=== PATIENT | female | born 1940 | race Caucasian/White ===

== ENCOUNTER → 2020-08-22 10:46 | Outpatient (CLI) | payer MEDICARE, OTHER, SELFPAY ==
[2020-08-22 12:52] LABS: COVID19 -Nasal RAPID Negative (Negative)
== END ==
PROVIDERS: Visit Provider Physician Assistant
DX: Z01.812 Encounter for preprocedural laboratory examination (principal)
CPT/HCPCS: 87635

== ENCOUNTER 2020-08-25 09:58 | Day surgery (SDC) | payer MEDICARE, OTHER, SELFPAY ==
[2020-08-22 07:22] VITALS: BMI 25.7
[2020-08-25] VITALS (20 sets, daily range): BP systolic 111–162; BP diastolic 31–102; PULSE 74–108; RESP 10–20; TEMP 35.8–36.7; O2SAT 93–100; BMI 25.7
--- NOTE | 2020-08-25 | DI.RAD.S_ITS ---
PROCEDURE: XR LUMBAR SPINE 2-3V INDICATIONS: L4-5 TLIF TECHNIQUE: 2 fluoroscopic views of the lumbar spine were acquired. COMPARISON: CT, ABD/PELVIS W/CON (PNL), 08/28/2014, 0:03. [facility], , L-SPINE 2-3 VIEWS, 06/01/2015, 17:25. FINDINGS: Pedicle screws at L4-L5 with intervertebral body spacer are in the expected position. IMPRESSION: Satisfactory appearance of the L4-L5 TLIF. Dictated by: Gallo Dolan M.D. on 08/28/2020 at 11:12 Approved by: Gallo Dolan M.D. on 08/28/2020 at 11:14
--- NOTE | 2020-08-25 10:07 | PM.PREOP ---
Pre-operative Note COVID-19 COVID-19 status: Negative Result date/Date tested (Pos, Neg/Pending): 08/23/20 Interval Note History & Physical reviewed/Exam performed by Physician: Yes Changes to H&P: No
[2020-08-25] MEDS: LACTATED RINGERS 1,000 ML 42 ML IV (10:44)
[2020-08-25] MEDS: CEFAZOLIN 2 GM/100 ML FROZ.PIGGY IV (11:08)
--- NOTE | 2020-08-25 11:51 | SUR.OPER ---
Prone on spine table, head in foam head support, padded chest and pelvic supports, gel pad at knees, lower legs supported by pillows; nipples, genitalia and toes free of pressure, arms secured on foam padded arm boards at <90 degrees abduction. Tape over blanket at thigh secured to table.
[2020-08-25] MEDS: BUPIVACAINE 0.25% W/ EPI (PF) 10 ML VIAL 20 ML INJ (12:01)
[2020-08-25] MEDS: BUPIVACAINE LIPOSOME 266 MG/20 ML VIAL INJ (12:03)
[2020-08-25] MEDS: ACETAMINOPHEN IV 1,000 MG/100 ML VIAL 400 MG IV (12:23)
--- NOTE | 2020-08-25 13:28 | P.OP_ITS ---
Operative Date/Time/Diagnoses Date of procedure: 08/25/20 Time of procedure: 11:39 Pre-op diagnosis: 1. L4-5 recurrent disc herniation 2. L4-5 spinal stenosis 3. L4-5 spondylosis with radiculopathy Post-op diagnosis: same Procedure & Clinicians Procedure: 1. L4-5 Postero-lateral and posterior interbody fusion 2. L4-5 interbody cage placement. 3. L4-5 decompressive laminectomy with bilateral facetecomies 4. L4-5 Posterior non-segmental instrumentation 5. [place] of bone marrow from iliac crest 6. Utilization of microsurgical technique and operating microscope Same procedure as scheduled: Yes Indications: Patient has been having chronic back pain and worsening lumbar radiculopathy. Patient had a previous microdiskectomy hemilaminectomy with temporary relief of her radiculopathy. Patient failed multiple conservative management with worsening pain weakness and numbness in her lower extremity. Patient has been having difficulty performing activity of daily living. After discussing risks benefits of treatment options, patient elected proceed with surgery. Surgeon: Lawrence Mclain Administration Manager: Soumya Mcbride Click Yes if Unassisted: No Anesthesia Type: General Operative Notes Closure Type: primary Specimen(s): none sent Prosthetic devices, grafts, tissues, transplants, or devices: Globus revolve screws, Rise cage Estimated Blood Loss (mL): 50 Blood products transfused: none Procedure in detail: Patient was seen in the preoperative area. Risks and benefits of the surgery was discussed with the patient. Informed consent was obtained from the patient and placed in the chart. Surgical site was marked. Patient was taken to the operative room. General anesthesia was administered. Prophylactic antibiotic was given to the patient less than 30 min before the incision was made. Patient was placed into a prone position on the Gustavo table. Patient's back was then prepped and draped in the sterile fashion. Time- out was performed at this time. Using AP and lateral C-arm imaging the interval between L4-5 was identified and marked on patient's back. A 2 inch incision 2 in from midline was made on the left side first. The fascia was incised in line with skin incision. Globus MARS retractors was placed inside the incision and docked onto the L4 lamina. Using microsurgical technique and operating microscope, a L4 laminectomy and L4-5 facetectomy was performed using a Kerrison rongeur. Patient was found have severe central and neural foramen stenosis which required a total facetectomy for decompression of the neural foramen and epidural space. The decompression rendered L4-5 level grossly unstable requiring a fusion procedure at same time. The disc space at L4-5 was identified. And a total diskectomy was performed at L4-5 level. The endplates were decorticated using a rasp and shaver. The total diskectomy and decortication was performed at L4-5 level in order to to accomplish a L4-5 fusion. The local bone from the laminectomy and facetectomy was saved for local bone grafting. After the total diskectomy and decortication was completed, Trifecta bone graft material was combined with local bone that was harvested earlier. At this time, a separate skin is incision was made over the iliac crest. A Jamshidi needle was inserted into the iliac crest through a separate skin incision. 5 cc of bone marrow aspiration was obtained through the separate skin incision using a Jamshidi needle from the iliac crest. The bone marrow aspiration was combined with local bone and the Trifecta bone grafting material. The bone grafting material was placed into the L4-5 interbody space along with a expandable cage. The cage was expanded to its maximum height using the torque limiting screwdriver. At this time a mirror image incision was made on the right side. The fascia was incised in line with the skin incision. Globus MARS retractor was inserted and docked onto the L4-5 posterolateral gutter. Using the power drill, posterior- lateral decortication was performed at L4-5 level until bleeding cortical bone was identified. The remaining bone grafting material was placed into the L4-5 posterior lateral gutter he order to accomplish posterolateral fusion at the L4- 5 level. Using the double C-arm technique, pedicle screws were placed into the L4-5 pedicles bilaterally. This was done by placing the Jamshidi needle into the pedicles, then placing the guidewires over the Jamshidi needle, and finally placing the cannulated screws over the guidewires bilaterally. After the pedicle screws were placed, 2 titanium rods was locked into the heads of the pedicle screws using locking caps and torque limiting screwdriver. After all the hardware was placed, and confirmed with AP and lateral C-arm imaging, the wound was then irrigated with sterile normal saline and packed with Ray-Dustin gauze for 3 min to accomplish hemostasis. After the gauze was removed the deep fascia was closed with #1 Vicryl suture. The subcutaneous layer was closed with 2-0 Vicryl. The skin was closed with skin pan. Patient tolerated the procedure well. There were no complications. Complications: none Post-operative Condition: stable Disposition: PACU Plan for aftercare: Admit to inpatient hospital
[2020-08-25] MEDS: fentaNYL 100 MCG/2 ML INJ IV ×2 (13:45→13:59)
[2020-08-25] MEDS: HYDROMORPHONE 2 MG INJ IV ×2 (13:50→14:09)
[2020-08-25] MEDS: LORazepam 2 MG/ML INJ 0.25 MG IV (14:04)
[2020-08-25] MEDS: ONDANSETRON 4 MG/2 ML INJ IV (14:39)
[2020-08-25] MEDS: OXYCODONE IR 5 MG TABLET PO (14:39)
--- NOTE | 2020-08-25 14:53 | SUR.PHASEI ---
Pt arrived to PACU awake and moaning with pain. Dr Santos gave pt 1mg of Dilaudid IV, pt continued to be restless and moaning. Pt positioned in several different positions till she became comfortable. Pt medicated with fntanyl, dilaudid and oxycodone. Pt also medicated with zofran as she stated pain pills make her nauseated.
--- NOTE | 2020-08-25 15:45 | SUR.PHASEI ---
1445 RN unavailable for report, pt placed in PACU holding till 1515. Pt transported up to room 207, face to face report given, pt much more comfortable in Vera bed. [id number] to back remained c/d/i. Pt left with MITCH Balderrama in stable condition.
[2020-08-25] MEDS: SODIUM CHLORIDE 0.9% 1,000 ML 100 ML IV (16:35)
[2020-08-25] MEDS: hydrOXYzine pamoate 25 MG CAPSULE PO (17:12)
[2020-08-25] MEDS: PANTOPRAZOLE 20 MG TABLET PO (20:05)
[2020-08-25] MEDS: CEFAZOLIN 1 GM/50 ML FROZ.PIGGY IV (20:05)
[2020-08-25] MEDS: DOCUSATE 100 MG CAPSULE PO (20:07)
[2020-08-25] MEDS: SENNOSIDES 8.6 MG TABLET 17.2 MG PO (20:07)
[2020-08-25] MEDS: ACETAMINOPHEN 325 MG TABLET 650 MG PO (20:17)
[2020-08-25] MEDS: HYDROMORPHONE 0.5 MG INJ IV (23:50)
[2020-08-26] MEDS: CEFAZOLIN 1 GM/50 ML FROZ.PIGGY IV (02:41)
[2020-08-26] MEDS: SODIUM CHLORIDE 0.9% 1,000 ML 100 ML IV (02:52)
[2020-08-26] MEDS: HYDROMORPHONE 0.5 MG INJ IV ×3 (03:21→09:01)
[2020-08-26 03:33] VITALS: BP 135/90; PULSE 67; RESP 18; TEMP 36.6; O2SAT 100
[2020-08-26 07:00] VITALS: BP 116/55; PULSE 76; RESP 17; TEMP 36.2; O2SAT 100
[2020-08-26] MEDS: THYROID, PORK 30 MG TABLET 90 MG PO (09:04)
[2020-08-26] MEDS: DOCUSATE 100 MG CAPSULE PO (09:04)
[2020-08-26] MEDS: estradioL 0.5 MG TABLET PO (09:04)
[2020-08-26] MEDS: POTASSIUM CHLORIDE 20 MEQ TAB 10 MEQ PO (09:05)
[2020-08-26] MEDS: hydrOXYzine pamoate 25 MG CAPSULE PO (09:05)
[2020-08-26] MEDS: ACETAMINOPHEN 325 MG TABLET 650 MG PO (09:05)
[2020-08-26] MEDS: MAGNESIUM OXIDE 400 MG TABLET PO (09:13)
[2020-08-26] MEDS: ROSUVASTATIN 10 MG TABLET 2.5 MG PO (09:15)
--- NOTE | 2020-08-26 09:45 | PT.IIE ---
Current Diagnoses Spinal stenosis, lumbar region without neurogenic claudication (08/25/20) Other specified postprocedural states (08/25/20) Surgery Performed Operation Date: 08/25/20 11:45 Actual Procedures p L4-5 TLIF - Lawrence Mclain MD Surgical History (Last Updated 08/22/20 @ 08:49 by Cait Noyola, RN) History of colonoscopy (Acute) History of esophagogastroduodenoscopy (EGD) (Acute) History of fusion of cervical spine (Acute) History of left-sided carotid endarterectomy (Acute 2006) History of Monty fundoplication (Acute) History of partial hysterectomy (Acute) History of repair of hiatal hernia (Acute ~2015) Hx of arthroscopy of right knee (Acute) Hx of bilateral cataract extraction (Acute) Hx of bladder repair surgery (Acute 1978) Hx of cholecystectomy (Acute) Hx of foot surgery (Acute) Hx of laminectomy (Acute 06/01/15) Hx of LASIK (Acute) Hx of sinus surgery (Acute) Hx of tonsillectomy (Acute) Medical History (Last Updated 08/22/20 @ 08:49 by Cait Noyola, MITCH) Anxiety (Acute) Aortic stenosis (Acute) Asthma (Acute) Ramirez's esophagus (Acute) Chronic bronchitis (Acute) CVA (cerebral vascular accident) (Acute ~2003) Depression (Acute) Diverticulosis (Acute) Edema (Acute) Erythema nodosum (Acute) Feeding by G-tube (Acute) GERD (gastroesophageal reflux disease) (Acute) History of nephritis (Acute) History of shingles (Acute) HLD (hyperlipidemia) (Acute) HTN (hypertension) (Acute) Hx of scarlet fever (Acute) Hypothyroidism (Acute) Left carotid stenosis (Acute) JONI on CPAP (Acute 08/2017) Palpitations (Acute) Pre-diabetes (Acute) PSVT (paroxysmal supraventricular tachycardia) (Acute) Raynauds phenomenon (Acute) Right renal artery stenosis (Acute) Spinal stenosis (Acute) Physical Therapy Inpatient Evaluation/Re-Eval M1 PT/OT-IP Prior Functional Status Start: 08/26/20 13:07 Freq: NEEDED Status: Active Protocol: Document 08/26/20 09:45 AB (Rec: 08/26/20 13:31 AB [id number]) Medical Review Prior Functional Status Medical History Reviewed Yes Communication able to make needs known Mobility and Gait pt stated that she is independent with all mobilities and ambulation wihtout AD Activities of Daily Living and IADL's stated that spouse assist her with LB dressing Social History Household Members spouse Living Arrangements House Number of Floors (Floors) One Floor Number of Stairs To Enter/Railing? ramp to enter Home Environment High Toilet,Walk in Shower Home Equipment Front Wheel Walker,Four Wheel Walker,Shower Seat with Backrest,Hand Held Shower,Grab Bars Near Toilet,Grab Bars In Shower Additional Social History Comment pt has an adjustable bed has a hurrycane at home M2 PT-IP Current Condition Start: 08/26/20 13:07 Freq: NEEDED Status: Active Protocol: Document 08/26/20 09:45 AB (Rec: 08/26/20 13:31 AB [id number]) Physical Therapy Current Condition Current Condition Evaluation Date 08/26/20 Treatment Diagnosis s/p L4-5 fusion/lami; difficulty in walking Onset Date 08/25/20 Precautions Lumbar Precautions Log Roll,No Twisting,Limit Bending,Lifting Restriction of 10 lbs,Gait Belt above Incisional Area M3 PT-IP Subjective Start: 08/26/20 13:07 Freq: NEEDED Status: Active Protocol: Document 08/26/20 09:45 AB (Rec: 08/26/20 13:31 AB [id number]) Subjective Physical Therapy Visit Type Type Initial Evaluation Visit Start Time 09:45 Visit Stop Time 10:41 Total Visit Minutes 56 Number of INFORMATION SYSTEMS CONSULTANT Visits 0 Physical Therapy Visit Comments Patient Comments pt is agreeable to do PT; pt can get very anxious Therapy Pain Assessment Pain When Pain Assessed At Rest Pain Present Pain Present Pain Reported Location Lower Back Intensity 4 Scale Used Numeric (0 - 10) Pain Management Techniques Distraction,Modification of Treatment,Timing of Activity with Medications M4 PT-IP Mobility and Gait Start: 08/26/20 13:07 Freq: NEEDED Status: Active Protocol: Document 08/26/20 09:45 AB (Rec: 08/26/20 13:31 AB [id number]) PT-Bed Mobility Assessment Rolling Type of Rolling Log Rolling Level of Assist Standby Assistance Supine to Sit Supine to Sit Standby Assistance Sit to Supine Sit to Supine Standby Assistance PT-Transfer Assessment Sit to and From Stand Sit to and from Stand Standby Assistance,Contact Guard Assistance,Use of Upper Extremities Equipment Transfer Assistive Device Gait Belt,Front Wheeled Walker Orthotic/Prosthetic Devices or Brace: No Transfers Transfer Destination Bed,Chair,Toilet Transfer Technique ambulated using FWW Transfer Ability Level of Assist Standby Assistance,Contact Guard Assistance,1 Person Assistance,Use of Upper Extremities Comments Mobility Comments pt is very anxious and has lots of questions regarding back precautions and log roll. educated pt and feels more comfortable and has better understanding regarding back precautions concerns. completed supine<>sit log roll SBA and cues. completed again but with her daughter assisting and cueing her and daughter was able to cue appropriately. completed sit to stand SBA to CGA and ambulated in room ~ 50 ft using FWW SBA to CGA. requested to use the toilet and ambulated using FWW SBA. completed toileting needs SBA. ambulated towards the sink SBA using FWW and was able to maintain standing balance SBA. ambulated to the chair and positioned on chair but pt stated that chair is not comfortable and having more back pain and wants to go back to bed. ambulated to the bed using FWW. completed sit to supine SBA. positioned in bed . OT came in and took over. Gait Assessment Gait Gait Assistance Required: Standby Assistance,Contact Guard Assist Distance (Feet) 50 Able to Maintain Weight Bearing Status Yes During Gait Assistive Devices Assistive Device Gait Belt,Front Wheeled Walker Orthotic/Prosthetic Devices or Brace: No Gait Deviations General Gait Pattern Antalgic,Decreased Stride Length,Decreased Feet Clearance Factors Limiting Gait Function Factors Limiting Gait Function Decreased Activity Tolerance, Decreased Strength,Limited Range of Motion,Pain,Poor Balance,Poor Safety Awareness Comments Gait Comments pls refer to mobility section for details PT-Balance Assessment Sitting Balance and Reactions Static Sitting Balance Ability Good Dynamic Sitting Balance Ability Good Standing Balance and Reactions Static Standing Balance Ability Fair Dynamic Standing Balance Ability Fair Device Used FWW M5 PT-IP Objective Assessments Start: 08/26/20 13:07 Freq: NEEDED Status: Active Protocol: Document 08/26/20 09:45 AB (Rec: 08/26/20 13:31 AB [id number]) Orientation Orientation/Cognition Level of Alertness Alert Orientation Name,Age,Place,Situation Language Function Ability Hard of Hearing Safety Awareness Decreased Safety Awareness Gross Range of Motion Lower Extremity ROM Assessment Within Functional Limits Strength Lower Extremity Strength Assessment Within Functional Limits Coordination Assessment Gross Coordination Gross Coordination WNL Sensation Assessment Sensation Gross Sensation WNL Muscle Tone Muscle Tone WNL Yes M6 PT-IP Treatment Start: 08/26/20 13:07 Freq: NEEDED Status: Active Protocol: Document 08/26/20 09:45 AB (Rec: 08/26/20 13:31 AB [id number]) Physical Therapy Treatment Education Education Provided Precautions,Weight Bearing Status,Post-Op Packet,Safety M7 PT-IP Assessment and Plan Start: 08/26/20 13:07 Freq: NEEDED Status: Active Protocol: Document 08/26/20 09:45 AB (Rec: 08/26/20 13:31 [id number]) PT Summary Assessment and Plan Potential Rehabilitation Potential Good Status of Condition at Evaluation Stable Summary Impairments Pain,ROM,Strength,Balance, Coordination,Sensation, Cognition,Bed Mobility, Transfers,Gait,Activity Tolerance Assessment Summary pt requiring SBA to CGA with mobility. initiated caregiver training with daughter and was able to assist and cue pt appropriately. pt plans to go home with assist. pt may go home when medically stable. Goals Bed Mobility Goal Independent Transfer Goal Independent,Front Wheeled Walker Gait Goal Independent,Front Wheel Walker Gait Distance 250 Days to Meet Goals 3 Frequency of Treatment Frequency Of Treatment Twice a Day Treatment Plan Physical Therapy Treatment Plan Bed Mobility Training,Transfer Training,Gait Training, Therapeutic Exercise,Balance Retraining,Post Op Education, Discharge Planning,Hot or Cold Pack,Neuromuscular Re-ed, Coordination Retraining,Manual Therapy Other Recommendations and Next Treatment ambulation, caregiver training Focus Recommendations To Nursing Amount of Assist Needed 1 Person Assist Discharge Recommendations PT Discharge Recommendations Home with Assistance Transportation Needs at Discharge Private Vehicle
--- NOTE | 2020-08-26 10:04 | PM.DS.1 ---
History of Present Illness History of Present Illness Date Patient Seen: 08/26/20 Time Patient Seen: 10:04 Chief complaint: OPB Narrative: Patient's pain is moderate to severe. Denies fever chills. No nausea vomiting. Patient does have family home to assist her. Patient wishes to go home today if stable to do so. Discharge Providers Provider Discharge Date: 08/26/20 Primary care physician: Chilango Zepeda MD Consults: 08/25/20 10:40 Consult to Respiratory Therapy Evaluate & Treat Comment: Physician Instructions: Evaluate and treat 08/25/20 15:47 Consult to Occupational Therapy Evaluate & Treat Comment: Physician Instructions: Evaluate and treat Consult to Physical Therapy Evaluate & Treat Comment: Physician Instructions: Evaluate and Treat Discharge provider: Francisco Javier Lynn PA-C Summary Hospital Course Discharge Diagnosis: 1. L4-5 recurrent disc herniation 2. L4-5 spinal stenosis 3. L4-5 spondylosis with radiculopathy Hospital Course: Procedure: 1. L4-5 Postero-lateral and posterior interbody fusion 2. L4-5 interbody cage placement. 3. L4-5 decompressive laminectomy with bilateral facetecomies 4. L4-5 Posterior non-segmental instrumentation 5. [place] of bone marrow from iliac crest 6. Utilization of microsurgical technique and operating microscope Same procedure as scheduled: Yes Indications: Patient has been having chronic back pain and worsening lumbar radiculopathy. Patient had a previous microdiskectomy hemilaminectomy with temporary relief of her radiculopathy. Patient failed multiple conservative management with worsening pain weakness and numbness in her lower extremity. Patient has been having difficulty performing activity of daily living. After discussing risks benefits of treatment options, patient elected proceed with surgery. Surgeon: Lawrence Mclain Lidder: Soumya Mcbride Click Yes if Unassisted: No Anesthesia Type: General Operative Notes Closure Type: primary Specimen(s): none sent Prosthetic devices, grafts, tissues, transplants, or devices: Globus revolve screws, Rise cage Estimated Blood Loss (mL): 50 Blood products transfused: none Patient admitted to the hospital yesterday for the above-mentioned procedure. Patient consented to the same. Patient taken to the operating room underwent L4-L5 posterior lateral and posterior interbody fusion. Patient back in her room recovering well and assist stable condition. Patient does have assistance at home. Patient wishes to go home today if stable to do so. Patient will be discharged after working with physical therapy. Exam Vital Signs (past 8 hours): - 08/26/20 03:33 08/26/20 07:00 Temperature 97.9 F 97.2 F L Pulse Rate 67 76 Respiratory Rate 18 17 Blood Pressure 135/90 116/55 L Pulse Oximetry 100 100 Oxygen Delivery Method CPAP Oxygen Flow Rate 0 Narrative Exam Narrative: Pleasant 80-year-old female resting comfortably in bed in no apparent distress. Lumbar dressing is clean, dry and intact. Sensation grossly intact to light touch bilateral lower extremities. Motor functions intact bilateral lower extremities. Both lower extremities are warm and dry. Discharge Assessment & Plan Assessment and Plan Assessment: Postop day 1 status post L4-L5 posterior lateral and posterior interbody fusion. Patient progressing as expected and will be discharged after physical therapy if stable to do so. Discharge Plan Discharge Plan Patient Disposition: Home Provider Discharge Comment: DC today after PT Discharge orders & Medications Discharge Orders: Discharge (Order); Ordered 08/26/20 Ordered By: Francisco Javier Lynn Prescriptions: New hydromorphone [Dilaudid] 4 mg tablet 4 mg PO Q4H PRN (Reason: pain) Qty: 60 RF: 0 docusate sodium [DOK] 100 mg Capsule 100 mg PO BID Qty: 30 RF: 0 acetaminophen 325 mg Tablet 650 mg PO Q6HR PRN (Reason: Pain, Mild (1-3)) Qty: 60 RF: 0 ondansetron HCl [Zofran] 4 mg tablet 4 mg PO Q8H PRN (Reason: nausea and vomiting) Qty: 20 RF: 0 Continued (DME) Respironics Dreamstation CPAP Qty: 1 RF: 0 albuterol sulfate 2.5 mg /3 mL (0.083 %) Solution For Nebulization 2.5 mg INHALATION Q4H PRN (Reason: Wheezing) RF: 0 clopidogrel 75 mg Tablet 75 mg PO DAILY RF: 0 aspirin 81 mg Tablet,Delayed Release (Dr/Ec) 81 mg PO DAILY RF: 0 triamcinolone acetonide 0.1 % Cream 1 applic TOPICAL PRN PRN (Reason: skin) RF: 0 hydroxyzine HCl 25 mg Tablet 25 mg PO QID PRN (Reason: Itching) RF: 0 estradiol 0.5 mg Tablet 0.5 mg PO DAILY RF: 0 azelastine 137 mcg (0.1 %) Aerosol,[place] 2 spray INTRANASAL BID PRN (Reason: prn) RF: 0 fluticasone propion-salmeterol [Advair Diskus] 100-50 mcg/dose Blister With Device 1 inh INHALATION DAILY RF: 0 estradiol 0.01 % (0.1 mg/gram) Cream 1 g VAGINAL 3XW RF: 0 albuterol sulfate 90 mcg/actuation Hfa Aerosol Inhaler 2 puff INHALATION Q4H PRN (Reason: Wheezing) RF: 0 lisinopril 2.5 mg Tablet 2.5 mg PO DAILY RF: 0 esomeprazole magnesium 20 mg Capsule,Delayed Release(Dr/Ec) 20 mg PO DAILY RF: 0 rosuvastatin 5 mg Tablet 2.5 mg PO DAILY RF: 0 cholecalciferol (vitamin D3) 25 mcg (1,000 unit) Tablet 25 mcg PO DAILY RF: 0 hydrochlorothiazide 12.5 mg Tablet 12.5 mg PO DAILY RF: 0 thyroid (pork) 90 mg Tablet 90 mg PO DAILY RF: 0 lutein 40 mg Capsule See Rx Instructions .ROUTE .COMPLEX RF: 0 potassium chloride 20 mEq Tablet Extended Release 10 - 20 meq PO DAILY RF: 0 evolocumab 140 mg/mL Syringe 140 mg SUBCUT Q2W RF: 0 Spiriva Respimat 1.25 mcg/actuation Mist 2 puff INHALATION DAILY RF: 0 cyclosporine 0.05 % Drops 1 drp EYE-BOTH BID RF: 0 magnesium oxide 400 mg magnesium Tablet 400 mg PO DAILY RF: 0 Follow up/Referrals: Lawrence Mclain MD [Physician] - (2 weeks) Diet/Activity/Treatments Diet: Diet as Tolerated Activity: Limit bending, lifting, twisting Cold/Heat Therapy: ice as needed Skin/Wound/Dressing Care Report to your healthcare provider any signs of infection, such as:: chills, fever, increased pain, unusual drainage and unusual redness Dressing: keep clean and dry Visit Report/Discharge Packet Instructions: DI for Transforaminal Lumbar Interbody Fusion Stand Alone Forms: Surgery Discharge Discharge Data Primary Care Provider: Chilango Zepeda Attending Provider: Lawrence Mclain Quality VTE Deep Vein Thrombosis/Pulmonary Embolism Present on Admission: No
--- NOTE | 2020-08-26 10:08 | P.DS_ITS ---
History of Present Illness History of Present Illness Chief complaint: OPB Narrative: Patient's pain is moderate to severe. Denies fever chills. No nausea vomiting. Patient does have family home to assist her. Patient wishes to go home today if stable to do so. Discharge Providers Provider Discharge Date: 08/26/20 Primary care physician: Chilango Zepeda MD Consults: 08/25/20 10:40 Consult to Respiratory Therapy Evaluate & Treat Comment: Physician Instructions: Evaluate and treat 08/25/20 15:47 Consult to Occupational Therapy Evaluate & Treat Comment: Physician Instructions: Evaluate and treat Consult to Physical Therapy Evaluate & Treat Comment: Physician Instructions: Evaluate and Treat Discharge provider: Francisco Javier Lynn PA-C Exam Vital Signs (past 8 hours): - 08/26/20 03:33 08/26/20 07:00 Temperature 97.9 F 97.2 F L Pulse Rate 67 76 Respiratory Rate 18 17 Blood Pressure 135/90 116/55 L Pulse Oximetry 100 100 Oxygen Delivery Method CPAP Oxygen Flow Rate 0 Discharge Assessment & Plan Assessment and Plan Assessment: Postop day 1 status post L4-L5 posterior lateral and posterior interbody fusion. Patient progressing as expected and will be discharged after physical therapy if stable to do so. Discharge Plan Discharge Plan Patient Disposition: Home Provider Discharge Comment: DC today after PT Discharge orders & Medications Discharge Orders: Discharge (Order); Ordered 08/26/20 Ordered By: Francisco Javier Lynn Prescriptions: New acetaminophen 325 mg Tablet 650 mg PO Q6HR PRN (Reason: Pain, Mild (1-3)) Qty: 60 RF: 0 docusate sodium [DOK] 100 mg Capsule 100 mg PO BID Qty: 30 RF: 0 ondansetron HCl [Zofran] 4 mg tablet 4 mg PO Q8H PRN (Reason: nausea and vomiting) Qty: 20 RF: 0 hydromorphone [Dilaudid] 4 mg tablet 4 mg PO Q4H PRN (Reason: pain) Qty: 60 RF: 0 Continued (DME) Respironics Dreamstation CPAP Qty: 1 RF: 0 albuterol sulfate 2.5 mg /3 mL (0.083 %) Solution For Nebulization 2.5 mg INHALATION Q4H PRN (Reason: Wheezing) RF: 0 clopidogrel 75 mg Tablet 75 mg PO DAILY RF: 0 aspirin 81 mg Tablet,Delayed Release (Dr/Ec) 81 mg PO DAILY RF: 0 triamcinolone acetonide 0.1 % Cream 1 applic TOPICAL PRN PRN (Reason: skin) RF: 0 hydroxyzine HCl 25 mg Tablet 25 mg PO QID PRN (Reason: Itching) RF: 0 estradiol 0.5 mg Tablet 0.5 mg PO DAILY RF: 0 azelastine 137 mcg (0.1 %) Aerosol,[place] 2 spray INTRANASAL BID PRN (Reason: prn) RF: 0 fluticasone propion-salmeterol [Advair Diskus] 100-50 mcg/dose Blister With Device 1 inh INHALATION DAILY RF: 0 estradiol 0.01 % (0.1 mg/gram) Cream 1 g VAGINAL 3XW RF: 0 albuterol sulfate 90 mcg/actuation Hfa Aerosol Inhaler 2 puff INHALATION Q4H PRN (Reason: Wheezing) RF: 0 lisinopril 2.5 mg Tablet 2.5 mg PO DAILY RF: 0 esomeprazole magnesium 20 mg Capsule,Delayed Release(Dr/Ec) 20 mg PO DAILY RF: 0 rosuvastatin 5 mg Tablet 2.5 mg PO DAILY RF: 0 cholecalciferol (vitamin D3) 25 mcg (1,000 unit) Tablet 25 mcg PO DAILY RF: 0 hydrochlorothiazide 12.5 mg Tablet 12.5 mg PO DAILY RF: 0 thyroid (pork) 90 mg Tablet 90 mg PO DAILY RF: 0 lutein 40 mg Capsule See Rx Instructions .ROUTE .COMPLEX RF: 0 potassium chloride 20 mEq Tablet Extended Release 10 - 20 meq PO DAILY RF: 0 evolocumab 140 mg/mL Syringe 140 mg SUBCUT Q2W RF: 0 Spiriva Respimat 1.25 mcg/actuation Mist 2 puff INHALATION DAILY RF: 0 cyclosporine 0.05 % Drops 1 drp EYE-BOTH BID RF: 0 magnesium oxide 400 mg magnesium Tablet 400 mg PO DAILY RF: 0 Follow up/Referrals: Lawrence Mclain MD [Physician] - (2 weeks) Diet/Activity/Treatments Diet: Diet as Tolerated Activity: Limit bending, lifting, twisting Cold/Heat Therapy: ice as needed Skin/Wound/Dressing Care Report to your healthcare provider any signs of infection, such as:: chills, fever, increased pain, unusual drainage and unusual redness Dressing: keep clean and dry Visit Report/Discharge Packet Instructions: DI for Transforaminal Lumbar Interbody Fusion Stand Alone Forms: Surgery Discharge Discharge Data Primary Care Provider: Chilango Zepeda Attending Provider: Lawrence Mclain VTE Deep Vein Thrombosis/Pulmonary Embolism Present on Admission: No
[2020-08-26] MEDS: HYDROMORPHONE 4 MG TABLET PO ×2 (10:20→14:37)
[2020-08-26] MEDS: CHOLECALCIFEROL (VITAMIN D3) 1,000 UNIT TABLET 1000 UNIT PO (10:21)
[2020-08-26] MEDS: ONDANSETRON 4 MG/2 ML INJ IV (10:55)
--- NOTE | 2020-08-26 11:17 | OT.IP.EVAL ---
Current Diagnoses Spinal stenosis, lumbar region without neurogenic claudication (08/25/20) Other specified postprocedural states (08/25/20) Surgery Performed Operation Date: 08/25/20 11:45 Actual Procedures p L4-5 TLIF - Lawrence Mclain MD Past Medical History (Last Updated 08/22/20 @ 08:49 by Cait Noyola, RN) Anxiety (Acute) Aortic stenosis (Acute) Asthma (Acute) Ramirez's esophagus (Acute) Chronic bronchitis (Acute) CVA (cerebral vascular accident) (Acute ~2003) Depression (Acute) Diverticulosis (Acute) Edema (Acute) Erythema nodosum (Acute) Feeding by G-tube (Acute) GERD (gastroesophageal reflux disease) (Acute) History of nephritis (Acute) History of shingles (Acute) HLD (hyperlipidemia) (Acute) HTN (hypertension) (Acute) Hx of scarlet fever (Acute) Hypothyroidism (Acute) Left carotid stenosis (Acute) JONI on CPAP (Acute 08/2017) Palpitations (Acute) Pre-diabetes (Acute) PSVT (paroxysmal supraventricular tachycardia) (Acute) Raynauds phenomenon (Acute) Right renal artery stenosis (Acute) Spinal stenosis (Acute) Surgical History (Last Updated 08/22/20 @ 08:49 by Cait Noyoal, RN) History of colonoscopy (Acute) History of esophagogastroduodenoscopy (EGD) (Acute) History of fusion of cervical spine (Acute) History of left-sided carotid endarterectomy (Acute 2006) History of Monty fundoplication (Acute) History of partial hysterectomy (Acute) History of repair of hiatal hernia (Acute ~2015) Hx of arthroscopy of right knee (Acute) Hx of bilateral cataract extraction (Acute) Hx of bladder repair surgery (Acute 1978) Hx of cholecystectomy (Acute) Hx of foot surgery (Acute) Hx of laminectomy (Acute 06/01/15) Hx of LASIK (Acute) Hx of sinus surgery (Acute) Hx of tonsillectomy (Acute) Occupational Therapy Inpatient Evaluation/Re-Eval M1 PT/OT-IP Prior Functional Status Start: 08/26/20 13:07 Freq: NEEDED Status: Active Protocol: Document 08/26/20 13:27 CGR (Rec: 08/26/20 13:41 CGR [email or web address]) Medical Review Prior Functional Status Medical History Reviewed Yes Communication Pt is an effective verbal communicator. Mobility and Gait Pt was IND with mobility. Activities of Daily Living and IADL's Pt was IND for ADLs except she had assist with LB dressing. Social History Household Members spouse Living Arrangements House Number of Floors (Floors) One Floor Number of Stairs To Enter/Railing? pt has a ramp to enter. Home Environment High Toilet,Walk in Shower,Tub /Shower Home Equipment Front Wheel Walker,Four Wheel Walker,Manual Wheelchair, Bedside Commode,Hand Held Shower,Equipment Associate,Sock Aid,Grab Bars In Shower Employment Status Retired Additional Social History Comment Pt has an adjustable bed. M2 OT-IP Current Condition Start: 08/26/20 13:27 Freq: Status: Active Protocol: Document 08/26/20 13:27 CGR (Rec: 08/26/20 13:41 CGR [email or web address]) Occupational Therapy Current Condition Current Condition Evaluation Date 08/26/20 Treatment Diagnosis L4-5 TLIF Diagnosis Onset Date 08/25/20 M3 OT- IP Subjective and Pain Start: 08/26/20 13:27 Freq: Status: Active Protocol: Document 08/26/20 13:27 CGR (Rec: 08/26/20 13:41 CGR [email or web address]) OT- Subjective Occupational Therapy Visit Type Type Initial Evaluation Visit Start Time 10:38 Visit Stop Time 11:17 Total Visit Minutes 39 Notes P.T. finishing up as OT entered OT Pain Assessment Pain When Pain Assessed During Mobility Pain Present Pain Present Pain Reported Location Lower Back Intensity 5 Scale Used Numeric (0 - 10) Management Techniques Distraction,Modification of Treatment,Re-positioning, Timing of Activity with Medications M4 OT- IP ADL's Start: 08/26/20 13:27 Freq: Status: Active Protocol: Document 08/26/20 13:27 CGR (Rec: 08/26/20 13:41 CGR [email or web address]) OT [id number] Comments OT Self-Feeding Comments Not meal time OT ADL-Grooming General Evaluation Grooming Ability Standby Assistance Areas Needing Assistance Face Washing Comments OT Grooming Comments standing at sink OT ADL-Oral Care General Eval Oral Care Ability Standby Assistance Areas of Assistance Brushing Teeth,Retrieving/Set- Up of Items Comments Oral Care Comments standing at sink OT ADL-Dressing Comments OT Dressing Comments Not performed, Pt states she has a sock aid and knows how to use it but prefers to have her assist with LB dressing. OT ADL-Toileting General Evaluation Toileting Ability Standby Assistance Comments OT Toileting Comments seated on toilet OT ADL-Bathing Comments OT Bathing Comments not performed M5 OT- IP IADL's Start: 08/26/20 13:27 Freq: Status: Active Protocol: Document 08/26/20 13:27 CGR (Rec: 08/26/20 13:41 CGR [email or web address]) OT-Instrumental Activities of Daily Living Deficits IADL Deficits Identified Deficits Home Safety Awareness Awareness of Need for Assistance at Home Decreased Awareness Ability to Problem Solve Emergency Able to Problem Solve Situations Medication Management Medication Management No Deficits Identified Money Management Money Management No Deficits Identified Meal Preparation Meal Preparation No Deficits Identified Rigger Up Rigger Up No Deficits Identified Driving Driving Caregiver Provides Assist Driving Comments 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 M6 OT- IP Functional Cognition Start: 08/26/20 13:27 Freq: Status: Active Protocol: Document 08/26/20 13:27 CGR (Rec: 08/26/20 13:41 CGR [email or web address]) Cognitive Factors Limiting Selfcare Function Cognitive Ability Level of Alertness Alert Patient Orientation Name,Age,Birthday,Month,Date, Year,Day of Week,Place, Situation Attention Span Ability Capable of Focused Attention, Capable of Sustained Attention Ability to Follow Commands Able to Follow One Step Commands with Increased Time, Able to Follow One Step Commands with Repetition Memory Description No Deficits Noted Safety Awareness Underestimates Need for Assistance OT- Vision and Hearing OT- Hearing Assessment OT- Hearing Assessment Hearing Impaired OT- Vision Assessment Vision History Cataracts Visual Acuity WFL Visual Attentiveness WFL Occular Pursuits WFL Visual Convergence WFL M7 OT- IP Mobility and Balance Start: 08/26/20 13:27 Freq: Status: Active Protocol: Document 08/26/20 13:27 CGR (Rec: 08/26/20 13:41 CGR [email or web address]) OT- Bed Mobility Assessment Rolling Type of Rolling Log Rolling,Roll to Left Level of Assistance Standby Assistance Supine to Sit Supine to Sit Assist Standby Assistance Sit to Supine Sit to Supine Assist Standby Assistance Scooting Scooting to Edge of Bed Standby Assistance OT-Transfer Assessment Sit to and From Stand Sit to and from Stand Standby Assistance Transfers Transfer Ability Standby Assistance Technique Transfer Destination Bed,Chair,Toilet Transfer Technique Stand Step Pivot Devices Transfer Assistive Devices Gait Belt,Front Wheeled Walker Comments Mobility Comments Pt ambulates around the room with sBA and walker with gait belt donned. OT- Balance Assessment Sitting Balance and Reactions Static Sitting Balance Ability Normal Dynamic Sitting Balance Ability Good M8 OT- IP Objective Assessments Start: 08/26/20 13:27 Freq: Status: Active Protocol: Document 08/26/20 13:27 CGR (Rec: 08/26/20 13:41 CGR [email or web address]) OT Gross Range of Motion Upper Extremity Range of Motion Assessment Within Functional Limits OT Strength Upper Extremity Strength Assessment Within Functional Limits Comments Strength Comments grossly 4/5 OT- Coordination Assessment Upper Extremity Finger to Nose Test Within Functional Limits Finger Tapping Test Within Functional Limits OT-Muscle Tone Assessment Muscle Tone WNL Yes OT Sensation Assessment Edema Edema Absent M9 OT- IP Assessment and Plan Start: 08/26/20 13:27 Freq: Status: Active Protocol: Document 08/26/20 13:27 CGR (Rec: 08/26/20 13:41 CGR [email or web address]) OT Summary Assessment and Plan Potential Rehabilitation Potential Good Analytic Complexity at Evaluation Low Summary OT Impairments Pain,Functional Mobility, Dressing,Shower Transfers Progress Towards Goals Progressing Toward Goals Assessment Summary Pt presents as a low complexity evaluation s/p admit for L4-5 TLIF. Pt is progressing well with therapy and is likely safe for discharge home with family support. No DME needs at this time. Will follow up for shower if pt has not discharged by next OT session. Goals Bathing Goal Independent Shower Transfer Goal Independent Days to Meet Goals 2 Frequency of Treatment Frequency Of Treatment Once a Day Treatment Plan OT Treatment Plan ADL Training,Functional Mobility,Patient/Family Education,Discharge Planning Other Treatment Recommendations and Next shower Treatment Focus Discharge Recommendations OT Discharge Recommendations Home with Assistance Home Equipment Needs No needs Transportation Needs at Discharge Private Vehicle
[2020-08-26] MEDS: FLUTICASONE/SALMETEROL 100/50 60 PUFF DISKUS INH (11:19)
[2020-08-26] MEDS: TIOTROPIUM BROMIDE 18 MCG INHALER 36 MCG INH (11:25)
[2020-08-26 11:26] VITALS: PULSE 76; RESP 22; O2SAT 96
[2020-08-26 12:48] VITALS: BP 136/53; PULSE 82; RESP 18; TEMP 36.7; O2SAT 100
--- NOTE | 2020-08-26 14:35 | PT-IP ANOTE ---
Spoke w/ pt at 14:35, pt and state they feel safe to return w/o further training and have no questions for PT at this time.
--- NOTE | 2020-08-26 15:00 | CM.DANOTE ---
Patient is a 80 year old female who was admitted on 08/25/20 for TLIF. Pt has [facility] [employer] for insurance and her PCP is Dr. Chilango Zepeda. EMR was reviewed. Per Ortho MD, pt tolerated procedure well and has a hx of back surgery 4 years ago. Per PT/OT, pt resides with spouse in [facility] and utilizes a cane and is mostly independent with ADL's at baseline and has supportive adult Dtr who plans to stay with for assist at d/c and Dtr participated in CG training today and provided appropriate cueing and recommending safe d/c home with family assist when medically stable. Per Ortho PA, pt medically stable to d/c home today with family assist and no identified barriers to discharge. Per RN, no concerns at this time. SW unable to complete bedside assessment due to triage needs and no concerns for discharge. Plan: Patient to d/c home via Dtr POV today and no SW needs at this time and outpt follow up with Ortho scheduled. MALIK Mccormack
--- NOTE | 2020-08-26 15:22 | PC.NURSE ---
SHIFT NOTE/DISCHARGE; PATIENT STATES PAIN TOLERABLE WITH PO DILAUDID. PROVIDED NEW SCRIPT FOR SAME. CLEARED FOR DC HM PER PHYSICAL THERAPY. DRSG CHANGED AND MEDIPORE TAPE SPLITTING. GIA INTACT WITH SMALL SCATTERED BRUISES, NO ERYTHEMA, NO EDEMA, WOUND WELL APPROXIMATED. APPLIED COVER SITE DRSG. PATIENT AND SPOUSE CONFIRM UNDERSTANDING OF ALL DC HM INSTRUCTIONS. PATIENT LEFT VIA W/C WITH [employer] ESCORT TO VEHICLE, WITHOUT S/SX OF DISTRESS.
== END 2020-08-26 15:25 | disposition home or self-care (01) ==
LOC: OR 10:08 → AC 10:10
PROVIDERS: PCP Internal Medicine; Referring Provider Orthopaedic Surgery Orthopaedic Surgery of the Spine; Visit Provider Orthopaedic Surgery Orthopaedic Surgery of the Spine
PROC: (CPT 22633; principal; 2020-08-25 11:45)
DX: M48.061 Spinal stenosis, lumbar region without neurogenic claudication (principal); M51.16 Intervertebral disc disorders with radiculopathy, lumbar region; M47.26 Other spondylosis with radiculopathy, lumbar region; Z98.890 Other specified postprocedural states; I10 Essential (primary) hypertension; K21.9 Gastro-esophageal reflux disease without esophagitis; J45.909 Unspecified asthma, uncomplicated; F41.9 Anxiety disorder, unspecified; F32.9 Major depressive disorder, single episode, unspecified; R73.03 Prediabetes
CPT/HCPCS: 22633; 20939; 22853; 22840; 63047; 72100; 76000; 94640; 97161; 97165; 97530; 97535; C1776; A9270; C9290; J0131; J0330; J0690; J1100; J1170; J2060; J2405; J2704; J3010

== ENCOUNTER → 2021-01-15 11:48 | Outpatient (CLI) | payer MEDICARE, OTHER, SELFPAY ==
[2020-10-31 11:36] VITALS: BMI 25.7
[2021-01-15 13:57] LABS: COVID19 -Nasal RAPID Negative (Negative)
== END ==
PROVIDERS: PCP Internal Medicine; Visit Provider Family Medicine Sleep Medicine
DX: Z20.822 Contact with and (suspected) exposure to COVID-19 (principal)
CPT/HCPCS: 87635; C9803